=== PATIENT | female | born 1970 | race Caucasian/White ===

== ENCOUNTER 2016-12-16 23:22 | Emergency (ER) | payer OTHER ==
[~2016-12-16] VITALS: Ht 162.6 cm; Wt 60.0 kg
[2016-12-16 23:24] VITALS: BP 104/70; PULSE 107; RESP 20; TEMP 98.2; O2SAT 100
[2016-12-16] MEDS ORDERED: SODIUM CHLOR 0.9% 1000 ML INJ 1,000 ML IV SCH (23:33)
--- NOTE | 2016-12-16 23:40 | PD ---
HPI Chief Complaint: Allergic/Adverse Reaction Time Seen by Provider: 23:33 Travel History International Travel<30 days: No Contact w/Intl Traveler<30days: No Traveled to known affect area: No History of Present Illness HPI This is an otherwise healthy 46 year-old woman presents to the emergency department complaining of allergic reaction. She is a history of peanut allergy. She was eating some food that she thinks may have been cooked in peanut oil. She started getting feeling of tightness in her throat, some trouble breathing, some rash. She took 50 mg of Benadryl. She did not have her EpiPen on her. She's had severe life-threatening reactions in the past. Right now she feels a little tight in her chest, with a little tightness in her throat. She is a little bit of rash. Symptoms are mild compared to previous reactions that she's had. She has no other medical history, no other complaints. History Past Medical History Medical History: Denies Significant Hx Tetanus Vaccination: < 5 Years Influenza Vaccination: Yes LMP: 12/11/16 Social History Alcohol Use: Yes (RARE) Tobacco Use: Yes (RARE) Allergies-Medications (Allergen,Severity, Reaction): Coded Allergies: PEANUTS (Verified Allergy, Severe, 12/16/16) Review of Systems Except as stated in HPI: all other systems reviewed are Neg Physical Exam Narrative GENERAL: Well-appearing 46 year-old woman, no acute distress. A little bit anxious appearing. SKIN: Focused skin assessment warm/dry. A little bit of blotchy erythema on the neck and trunk. HEAD: Atraumatic. Normocephalic. EYES: Pupils equal and round. No scleral icterus. No injection or drainage. ENT: No nasal bleeding or discharge. Mucous membranes pink and moist. NECK: Trachea midline. No JVD. CARDIOVASCULAR: Regular rate and rhythm. No murmur appreciated. RESPIRATORY: No accessory muscle use. Clear to auscultation. Breath sounds equal bilaterally. No wheezing. GASTROINTESTINAL: Abdomen soft, non-tender, nondistended. Hepatic and splenic margins not palpable. MUSCULOSKELETAL: No obvious deformities. No edema. NEUROLOGICAL: Awake and alert. No obvious cranial nerve deficits. Motor grossly within normal limits. Normal speech. PSYCHIATRIC: Anxious. Data Data Last Documented VS Vital Signs Date Time Temp Pulse Resp B/P Pulse Ox O2 Delivery O2 Flow Rate FiO2 12/17/16 02:50 86 15 108/61 98 Room Air 12/16/16 23:24 98.2 Orders Ecg Monitoring (12/16/16 23:33) Iv Access Insert/Monitor (12/16/16 23:33) Oximetry (12/16/16 23:33) Sodium Chlor 0.9% 1000 Ml Inj (Ns 1000 M (12/16/16 23:33) Sodium Chloride 0.9% Flush (Ns Flush) (12/16/16 23:45) Epinephrine (1:1000) Inj (Adrenalin (1:1 (12/16/16 23:45) Diphenhydramine (Benadryl) (12/17/16 02:15) Methylprednisolone So Succ Inj (Solumedr (12/17/16 02:15) Diphenhydramine (Benadryl) (12/17/16 02:30) Methylprednisolone So Succ Inj (Solumedr (12/17/16 02:30) MDM Medical Decision Making Medical Screen Exam Complete: Yes Emergency Medical Condition: Yes Differential Diagnosis Asthma, allergic reaction, anaphylaxis, urticaria, other Narrative Course Medical decision making 46 old woman presents emergency Department with allergic reaction with skin findings and some tightness in the throat, history of life-threatening allergic reactions in the past. She took 50 g of Benadryl already. We'll give steroids , appendectomy, IV fluids. She'll be monitored in the emergency department. Diagnosis Primary Impression: Anaphylaxis Additional Instructions: Continue prednisone for the next 3 days. Continue Benadryl as needed for itching. Use EpiPen at the first sign of recurrent allergic reaction. Follow-up with your primary doctor in the next 2-4 days. Med/Other Pt SpecificInfo: Prescription(s) given Scripts Epinephrine Inj (Epipen 2-Jack Inj)0.3 Mg/0.3 Ml Pfpen0.3 Mg IM ONCE PRN ( ALLERGIC REACTION) #1 PACK Ref 0 Prov:Jared Santiago MD 12/17/16 Prednisone (Deltasone)20 Mg Tab20 Mg PO BID 3 Days Prov:Jared Santiago MD 12/17/16 Disposition: 01 DISCHARGE HOME Condition: Stable Jared Santiago MD December 16, 2016 23:40
[2016-12-16] MEDS ORDERED: EPINEPHrine HCL (1:1000) 1 MG/ML VIAL IM ONE (23:45)
[2016-12-16] MEDS ORDERED: SODIUM CHLORIDE 0.9% FLUSH 10 ML FLUSH IV FLUSH PRN (23:45)
[2016-12-16 23:59] VITALS: BP 105/58; PULSE 93; RESP 17; O2SAT 99
[2016-12-17] MEDS ORDERED: methylPREDNISolone SOD SUCC 125 MG/2 ML VIAL ONE (02:15)
[2016-12-17] MEDS ORDERED: diphenhydrAMINE HCL 50 MG CAP ONE (02:15)
[2016-12-17] MEDS ORDERED: diphenhydrAMINE HCL 50 MG CAP PO ONE (02:30)
[2016-12-17] MEDS ORDERED: methylPREDNISolone SOD SUCC 125 MG/2 ML VIAL IV ONE (02:30)
[2016-12-17 02:50] VITALS: BP 108/61; PULSE 86; RESP 15; O2SAT 98
[2016-12-17] MEDS ORDERED: PRED-503 PO (03:39)
[2016-12-17] MEDS ORDERED: EPIP0.3I IM (03:39)
== END 2016-12-17 04:30 | disposition home or self-care (01) ==
LOC: NEPC 23:22
DX: T78.01XA Anaphylactic reaction due to peanuts, initial encounter (principal); R21 Rash and other nonspecific skin eruption; Z72.0 Tobacco use; X58.XXXA Exposure to other specified factors, initial encounter
CPT/HCPCS: 96372; 99283; J0171; J7030; J2930; Q0163